=== PATIENT | female | born 1945 | race Caucasian/White ===

== ENCOUNTER → 2019-09-22 | Outpatient (CLI) | payer MEDICARE, OTHER ==
--- NOTE | 2019-09-22 16:27 | Diagnostic Imaging Report ---
HISTORY: Lower abdominal pain and constipation. TECHNIQUE: Upright and supine frontal views of the abdomen. COMPARISON: None. FINDINGS: Bowel loops are nondistended. There is moderate stool in the colon. No large collection of free air seen. 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 Cholecystectomy clips are noted. Multiple phleboliths are noted. There is a calcification measuring 11 mm in the region of the inferior pole of the right kidney. IMPRESSION: 1. Moderate stool in the colon. No small bowel distention is seen. 2. Nephrolithiasis. 3. 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 Dictated by: Dictated on workstation # [id number]
== END ==
LOC: RAD FS 14:19
PROVIDERS: ATTEND Nurse Practitioner Family
DX: K59.00 Constipation, unspecified (principal); N20.0 Calculus of kidney; M47.816 Spondylosis without myelopathy or radiculopathy, lumbar region
CPT/HCPCS: 74019

== ENCOUNTER → 2021-08-18 | Outpatient (CLI) | payer MEDICARE, OTHER ==
--- NOTE | 2021-08-18 16:16 | Diagnostic Imaging Report ---
INDICATION: Right shoulder pain. TIME OF EXAM: 2:59 PM. FINDINGS: Two views of right shoulder demonstrate normal humeral and acromioclavicular alignment. Acromiohumeral space is normal. There are suture anchors overlying the right humeral head from prior surgery. No fracture or dislocation is seen. IMPRESSION: No acute abnormality is detected. Dictated by: Dictated on workstation # [id number]
== END ==
LOC: RAD FS 14:43
PROVIDERS: ATTEND Internal Medicine Rheumatology
DX: M25.511 Pain in right shoulder (principal)
CPT/HCPCS: 73030

== ENCOUNTER → 2021-12-15 | Outpatient (CLI) | payer MEDICARE, OTHER ==
--- NOTE | 2021-12-15 16:25 | Diagnostic Imaging Report ---
INDICATION: Persistent cough. EXAMINATION: PA and lateral views of the chest were obtained at 4:00 p.m. Heart and mediastinal silhouette are normal in appearance. The lungs are clear. There is no pneumothorax or pleural fluid. IMPRESSION: Negative chest. Dictated by: Dictated on workstation # [id number]
== END ==
LOC: RAD FS 15:48
PROVIDERS: ATTEND Nurse Practitioner Family
DX: R05.3 Chronic cough (principal)
CPT/HCPCS: 71046

== ENCOUNTER → 2022-02-20 | Outpatient (CLI) | payer MEDICARE, OTHER ==
--- NOTE | 2022-02-20 18:23 | Diagnostic Imaging Report ---
INDICATION: Pain COMPARED: 08/18/2021 FINDINGS: Postsurgical anchors in the humerus stable. 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 No fracture or opaque loose body. IMPRESSION: Stable chronic degenerative and postoperative findings. Dictated by: Dictated on workstation # [id number]
== END ==
LOC: RAD FS 13:43
PROVIDERS: ATTEND Nurse Practitioner
DX: M19.011 Primary osteoarthritis, right shoulder (principal); M25.811 Other specified joint disorders, right shoulder; M75.121 Complete rotator cuff tear or rupture of right shoulder, not specified as traumatic; Z98.890 Other specified postprocedural states
CPT/HCPCS: 73030